=== PATIENT | male | born 1975 | race Caucasian/White ===

== ENCOUNTER 2017-08-15 17:37 | Emergency (ER) | payer OTHER ==
[2017-08-15 17:48] VITALS: BP 121/72; PULSE 90; RESP 18; TEMP 98.1; O2SAT 100
--- NOTE | 2017-08-15 18:15 | ED PDOC ---
HPI: Headache Time Seen by Provider: 08/15/17 18:03 Chief Complaint (Nursing): Headache Chief Complaint (Provider): Headache History Per: Patient History/Exam Limitations: no limitations Onset/Duration Of Symptoms: Hrs Current Symptoms Are (Timing): Still Present Preceeding Symptoms: None Additional Complaint(s): 42 year old male with past medical history of seizures and brain bleed presents to the ED complaining of a headache. The patient states that around 4pm today he was taking out the garbage when he stepped on a branch and fell over hitting his head on the side of the house causing injury. Denies loss of consciousness. Of note: Patient states that he has a residual deficit due to having a stroke 20 years ago. Further states that his neurologist discontinues his Dilantin 6 years ago. PMD: Tad Mcclellan Past Medical History Reviewed: Historical Data, Nursing Documentation, Vital Signs Vital Signs: Last Vital Signs Temp 98.1 F 08/15/17 17:44 Pulse 90 08/15/17 17:44 Resp 18 08/15/17 17:44 BP 121/72 08/15/17 17:44 Pulse Ox 100 08/15/17 17:44 - Medical History PMH: No Chronic Diseases, Seizures - Surgical History Surgical History: No Surg Hx, Coronary Stent - Family History Family History: States: Unknown Family Hx - Living Arrangements Living Arrangements: With Family - Social History Current smoker - smoking cessation education provided: No Ex-Smoker (has not smoked in the last 12 months): No Alcohol: None Drugs: Denies - Home Medications Home Medications: Ambulatory Orders Medication Instructions Recorded Polymyxin/Trimethoprim Sulfate 100 drop OD BID #1 bottle 01/13/16 [Polytrim Ophth Soln] - Allergies Allergies/Adverse Reactions: Allergies Allergy/AdvReac Type Severity Reaction Status Date / Time cephalexin monohydrate Allergy RASH Verified 08/15/17 17:43 [From Keflex] Review of Systems Constitutional: Positive for: Other (head trauma) Neurological: Positive for: Other (no loss of consciousness) Physical Exam - Reviewed Nursing Documentation Reviewed: Yes Vital Signs Reviewed: Yes - Physical Exam Appears: Positive for: Non-toxic, No Acute Distress Head Exam: Positive for: NORMAL INSPECTION (abrasion noted to left forhead) Skin: Positive for: Normal Color, Warm, Dry. Negative for: Rash Eye Exam: Positive for: Normal appearance, EOMI, PERRL. Negative for: Nystagmus ENT: Positive for: Normal ENT Inspection. Negative for: Tonsillar Exudate, Tonsillar Swelling Neck: Positive for: Normal, Painless ROM, Supple Cardiovascular/Chest: Positive for: Regular Rate, Rhythm, Chest Non Tender. Negative for: Tachycardia Respiratory: Positive for: Normal Breath Sounds. Negative for: Wheezing, Respiratory Distress Gastrointestinal/Abdominal: Positive for: Normal Exam, Bowel Sounds, Soft. Negative for: Tenderness, Guarding Back: Positive for: Normal Inspection. Negative for: L CVA Tenderness Extremity: Positive for: Normal ROM (1/5 dorsal/plantar flexion right leg; 5/5 left leg; 3/5 leg extension right leg; 3/5 strength left leg.). Negative for: Tenderness, Deformity, Swelling Neurologic/Psych: Positive for: Alert (A&Ox3; pt has difficulty with finger to nose with right hand), Oriented - ECG O2 Sat by Pulse Oximetry: 100 Medical Decision Making Medical Decision Makin Initial Impression 42 y/o male presenting with headache Initial Plan: * CT head w/o contrast * Reevaluation 1999 CT Head Without Intravenous Contrast EXAM DATE/TIME: 08/15/2017 6:03 PM CLINICAL HISTORY: 42 years old, male; Injury or trauma; Fall; Initial encounter; Concussion / head injury; Without loss of consciousness; Injury date: 08-15-2017; Injury details: Abrasion left forehead; Prior surgery; Surgery date: 6+ months; Patient HX: Hemorrhage/Stroke in 1995 TECHNIQUE: Axial computed tomography images of the head/brain without intravenous contrast. All CT scans at this facility use one or more dose reduction techniques, viz.: automated exposure control; ma/kV adjustment per patient size (including targeted exams where dose is matched to indication; i.e. head); or iterative reconstruction technique. Coronal and sagittal reformatted images were created and reviewed. COMPARISON: There are no prior studies for comparison. FINDINGS: Brain: Ventricles are normal in size. There is mild compensatory dilatation of the posterior horn of the left lateral ventricle. There is no midline shift. There are no intra-axial or extra-axial mass lesions or areas of hemorrhage. There is left posterior parietal encephalomalacia. There is streak artifact from multiple vascular coils/clips. There are no abnormal fluid collections. Chapa-white differentiation is maintained. Ventricles: See above Bones:: There is an old left posterior parietal occipital craniotomy. There is no acute fracture. Soft tissues: There is left frontal scalp bruising. Sinuses: There is no acute sinusitis. Ears and mastoids: Middle ears and mastoids are unremarkable Orbits: Orbital contents are unremarkable. IMPRESSION: Remote left posterior parietal craniotomy with underlying left posterior parietal encephalomalacia; no acute intracranial abnormality; minimal bruising in the left frontal region, no fracture Documented by Fide Farmer acting as a scribe for Pau Mcallister PA-C. All medical record entries made by the Scribe were at my direction and personally dictated by me. I have reviewed the chart and agree that the record accurately reflects my personal performance of the history, physical exam, medical decision making, and the department course for this patient. I have also personally directed, reviewed, and agree with the discharge instructions and disposition. Disposition - Clinical Impression Clinical Impression: Head injury - Patient ED Disposition Is Patient to be Admitted: No Counseled Patient/Family Regarding: Studies Performed - Disposition Disposition: Routine/Home Disposition Time: 20:28 Condition: STABLE Instructions: Head Injury (ED) Forms: [facility] (Polish) - POA Present On Arrival: None
--- NOTE | 2017-08-15 20:00 | CT ---
EXAM: CT Head Without Intravenous Contrast EXAM DATE/TIME: 08/15/2017 6:03 PM CLINICAL HISTORY: 42 years old, male; Injury or trauma; Fall; Initial encounter; Concussion / head injury; Without loss of consciousness; Injury date: 08-15-2017; Injury details: Abrasion left forehead; Prior surgery; Surgery date: 6+ months; Patient HX: Hemorrhage/Stroke in 1995 TECHNIQUE: Axial computed tomography images of the head/brain without intravenous contrast. All CT scans at this facility use one or more dose reduction techniques, viz.: automated exposure control; ma/kV adjustment per patient size (including targeted exams where dose is matched to indication; i.e. head); or iterative reconstruction technique. Coronal and sagittal reformatted images were created and reviewed. COMPARISON: There are no prior studies for comparison. FINDINGS: Brain: Ventricles are normal in size. There is mild compensatory dilatation of the posterior horn of the left lateral ventricle. There is no midline shift. There are no intra-axial or extra-axial mass lesions or areas of hemorrhage. There is left posterior parietal encephalomalacia. There is streak artifact from multiple vascular coils/clips. There are no abnormal fluid collections. Chapa-white differentiation is maintained. Ventricles: See above Bones:: There is an old left posterior parietal occipital craniotomy. There is no acute fracture. Soft tissues: There is left frontal scalp bruising. Sinuses: There is no acute sinusitis. Ears and mastoids: Middle ears and mastoids are unremarkable Orbits: Orbital contents are unremarkable. IMPRESSION: Remote left posterior parietal craniotomy with underlying left posterior parietal encephalomalacia; no acute intracranial abnormality; minimal bruising in the left frontal region, no fracture
== END 2017-08-15 20:33 | disposition home or self-care (01) ==
LOC: H.ER 17:37
DX: S09.90XA Unspecified injury of head, initial encounter (principal); W19.XXXA Unspecified fall, initial encounter; Y92.89 Other specified places as the place of occurrence of the external cause; G93.89 Other specified disorders of brain; Z86.73 Personal history of transient ischemic attack (TIA), and cerebral infarction without residual deficits; Z87.891 Personal history of nicotine dependence; Z86.69 Personal history of other diseases of the nervous system and sense organs

== ENCOUNTER 2018-11-26 17:39 | Emergency (ER) | payer OTHER ==
[2018-11-26 18:45] VITALS: BP 128/83; PULSE 84; RESP 16; TEMP 97.3; O2SAT 98
[2018-11-26] MEDS ORDERED: Tdap Vaccine 0.5 ml Vial (10-64 yrs) IM ONE ×2 (20:11→20:18)
[2018-11-26] MEDS ORDERED: Bacitracin 500 Units/gm Oint Foilpak UD TOP STA (20:12)
--- NOTE | 2018-11-26 22:45 | ED PDOC ---
HPI: Skin/Bite Injury Time Seen by Provider: 11/26/18 20:05 Chief Complaint (Nursing): Finger,Hand,&Wrist History Per: Patient History/Exam Limitations: no limitations Additional Complaint(s): 43 yo M presents with cut to Left middle finger 3-4 hours [employer] .Pt reports he was using a knife to cut tape off scissors when the knife stabbed him. He says it has been bleeding a lot and painful. He did not clean it or take anything for pain. Denies other injury, numbness or tingling, changes in skin color, decrease motor or sensation. PMD: Dr. Silva Tetanus: unsure if it was 5 or 6 years ago Past Medical History Reviewed: Historical Data, Nursing Documentation, Vital Signs Vital Signs: Last Vital Signs Temp 97.3 F L 11/26/18 18:43 Pulse 84 11/26/18 18:43 Resp 16 11/26/18 18:43 BP 128/83 11/26/18 18:43 Pulse Ox 98 11/26/18 18:43 - Medical History PMH: Seizures - Surgical History Surgical History: Coronary Stent - Family History Family History: States: Unknown Family Hx - Home Medications Home Medications: Ambulatory Orders Medication Instructions Recorded Polymyxin/Trimethoprim Sulfate 100 drop OD BID #1 bottle 01/13/16 [Polytrim Ophth Soln] Bacitracin OINT 1 applic .ROUTE BID #1 tube 11/26/18 - Allergies Allergies/Adverse Reactions: Allergies Allergy/AdvReac Type Severity Reaction Status Date / Time cephalexin monohydrate Allergy RASH Verified 08/15/17 17:43 [From Keflex] Review of Systems Constitutional: Negative for: Fever Musculoskeletal: Positive for: Hand Pain Neurological: Negative for: Weakness, Numbness Physical Exam - Reviewed Nursing Documentation Reviewed: Yes - Physical Exam Comments: GENERAL APPEARANCE: Patient is awake, alert, oriented x 3, in no acute distress. SKIN: Warm, dry; (-) cyanosis. CHEST AND RESPIRATORY:Lungs: (-) rales, (-) rhonchi, (-) wheezes; breath sounds equal bilaterally. HEART AND CARDIOVASCULAR: (-) irregularity; (-) murmur, (-) gallop. EXTREMITIES: LUE: pulses +2, capillary refill <2sec (-) distal neurovascular deficit, small puncture/abrasion wound to distal palmar aspect of 3rd digit, mild active bleeding, mild tenderness to palpation motor and sensation intact, (+)flexion and extension intact, (-)foreign body, no swelling or erythema. NEURO AND PSYCH: Mental status as above. - ECG O2 Sat by Pulse Oximetry: 98 Medical Decision Making Medical Decision Makin:15 43 yo M with a small puncture wound to finger -- update Tdap -- wound was irrigated by me with saline -- Tylenol PO -- bacitracin and bandage applied by RN Discussed diagnosis, treatment, wound care, return precautions and f/u with pt who is understanding, in agreement and stable for dc Disposition - Clinical Impression Clinical Impression: Puncture wound of finger of left hand - Patient ED Disposition Is Patient to be Admitted: No Counseled Patient/Family Regarding: Studies Performed, Diagnosis, Need For Followup, Rx Given - Disposition Referrals: Tad Camp MD [Family Provider] - Disposition: Routine/Home Disposition Time: 21:00 Condition: STABLE Additional Instructions: Return to ED for new or worsening symptoms, fever >100.4, increase redness or swelling, unable to move or bend finger, foul odor or drainage. Follow up with your primary doctor. Keep wound clean, dry and covered. Apply bacitracin in the morning then bandage, at night clean with soap and water, apply bacitracin again and let air out at night. Take Tylenol or Ibuprofen as needed for pain. Prescriptions: Bacitracin OINT 1 applic .ROUTE BID #1 tube Instructions: Wound Care (DC) Forms: [employer] ([place]) Print Language: KAZAKH - POA Present On Arrival: None
== END 2018-11-26 21:18 | disposition home or self-care (01) ==
LOC: H.ER 17:39
DX: S61.233A Puncture wound without foreign body of left middle finger without damage to nail, initial encounter (principal); W26.0XXA Contact with knife, initial encounter; Z88.1 Allergy status to other antibiotic agents; Z95.5 Presence of coronary angioplasty implant and graft; Z23 Encounter for immunization